=== PATIENT | female | born 1965 | race Caucasian/White ===

== ENCOUNTER 2019-07-06 16:46 | Outpatient (RCR) | payer OTHER, SELFPAY ==
--- NOTE | 2019-07-06 17:28 | PTOPEVAL ---
Thank you for referring this patient to [facility]. Please review, sign, date and return this plan of care VIET. I agree with and certify that the following plan of care is medically necessary. Referring Physician Date Admitting Provider: Attending Provider: Nik Mccord MD Referring Provider: *PT Outpatient Evaluation Start: 07/06/19 16:51 Freq: Status: Active Protocol: Document 07/06/19 16:52 TRAE (Rec: 07/06/19 17:28 TRAE [id number]) Therapy Assessment Status Assessment Status Assessment Status Evaluation Outpatient Past Medical History Neurological History Hx Neurological Disorders No Significant History Cardiovascular History Hx Hypercholesterolemia Yes: ON PRAVASTATIN Hx Hypertension Yes: ON VERAPAMIL AND SPIRONOLACTONE Respiratory History Hx Sleep Apnea Yes: PT STATES SHE HAS JORDAN-NO EVAL/NO CPAP Gastrointestinal History Hx Gastroesophageal Reflux Disease Yes: ON OMEPRAZOLE Genitourinary History Hx Urinary Tract Infection Yes: CHRONIC/RECURRENT UTI Musculoskeletal History Hx Other Musculoskeletal Disorders Yes: 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 SARA ULNAR NERVE TRANSPOSITION IN PAST Hematological History Hx Hematological Disorders No Significant History Endocrine History Hx Endocrine Disorders No Significant History HEENT History Hx Sinus Problems Yes: CHRONIC SINUSITIS R/T SEASONAL ALLERGIES- ON LORATIDINE/MONTELUKAST Integumentary History Hx Other Skin Disorders Yes: IDIOPATHIC RASH SEVERE AFTER HYST 2018-TREATED/ RESOLVED Reproductive History Hx Hysterectomy Yes: 2018 Psychosocial History Hx Psychiatric Disorders No Significant History Pain History History of Any Previous or Ongoing No Significant History Instance of Pain Anesthesia History Hx Post-Op Nausea/Vomiting Yes Evaluation Information Problem Diagnosis low back pain Onset 01/02/19 Subjective Information Pt. reports that she woke out Query Text:As Reported By Patient/ of bed about 6 months ago with Family back pain. She reports pain was intially a stabbing pain after getting up. She reports that beginning of this month she began to get more aggressive with exercise recently. She reports that increased walking causes pain
--- NOTE | 2019-08-23 07:16 | PCPTNOTE ---
Pt. has failed to return to the clinic. She attended a total of 2 treatment sessions. Pt. will be discharged from our care at this time. Refer to last daily noted for pt. discharge status.
== END 2019-07-10 09:43 | disposition home or self-care (01) ==
LOC: CHSPT 16:46
PROVIDERS: PCP Internal Medicine; Visit Provider Internal Medicine
DX: M54.5 Low back pain (principal)
CPT/HCPCS: 97014; 97110; 97161; G0283

== ENCOUNTER 2019-07-10 07:47 | Outpatient (CLI) | payer OTHER, SELFPAY ==
--- NOTE | ~2019-07-10 | MM_ITS ---
EXAMINATION: MM screening hermes BI w devonte HISTORY: Baseline screening mammogram TECHNIQUE: Craniocaudal and mediolateral oblique 3-D tomosynthesis images were obtained and synthetic 2-D images were generated. CAD analysis was submitted and interpreted. COMPARISON: None, baseline BREAST PARENCHYMAL COMPOSITION: The breasts are heterogeneously dense, which may obscure small masses . FINDINGS: RIGHT BREAST: There are questionable masses in the middle and posterior third of the inner breast. LEFT BREAST: There are questionable masses in the middle third of the outer breast in the anterior th ird of the inner breast. IMPRESSION: 1. Possible bilateral breast masses. 2. Additional mammographic views and possible breast ultrasound are recommended to evaluate for malig monica and establish a baseline given that this is the first mammographic examination. BI-RADS Category 0: Incomplete: Needs additional imaging evaluation. Reviewed, dictated and finalized at location A. SSIS DEVELOPER IMPRESSION: 1. Possible bilateral breast masses. 2. Additional mammographic views and possible breast ultrasound are recommended to evaluate for malignancy and establish a baseline given that this is the fir st mammographic examination. BI-RADS Category 0: Incomplete: Needs additional imaging evaluation.
== END 2019-07-10 07:48 | disposition home or self-care (01) ==
LOC: CHSIMG 07:50
PROVIDERS: PCP Internal Medicine; Visit Provider Internal Medicine
DX: Z12.31 Encounter for screening mammogram for malignant neoplasm of breast (principal)
CPT/HCPCS: 77063; 77067

== ENCOUNTER 2019-07-17 08:18 | Outpatient (CLI) | payer OTHER, SELFPAY ==
--- NOTE | ~2019-07-17 | MMUS_ITS ---
EXAMINATION: MM diagnostic hermes BI w devonte, US breast BI limited HISTORY: Possible bilateral breast masses reported on 07/10/2019 bilateral digital screening mammogram. TECHNIQUE: Additional 3-D tomosynthesis images of both breasts were performed and synthetic 2-D image s were generated. CAD analysis was submitted and interpreted. High resolution complete bilateral tia st ultrasound was performed. COMPARISON: 07/10/2019 bilateral digital screening mammogram FINDINGS: MAMMOGRAPHIC FINDINGS: Scattered bilateral subcentimeter nodular densities are noted. These are partially obscured by the boykin rrounding fibroglandular stroma. Bilateral complete breast ultrasound examination is recommended. ULTRASOUND: No suspicious mass or shadowing of either breast is evident. Right breast: 3:00 3 cm from nipple: 2.1 x 1.9 x 2.4 mm simple cyst 3:00 7 cm from nipple: 3.7 x 2.4 x 1.8 mm simple cyst 3:00 9 cm from nipple: 2.9 x 2.8 x 3.4 mm simple cyst Left breast: 3:00 1 cm from nipple: 3.3 x 1.7 x 4.6 mm simple cyst 3:00 3 cm from nipple: 1.7 x 2.1 x 2.3 mm sonolucency without internal vascularity or posterior shado wing, likely cyst 3:00 7 cm from nipple: Complicated multicystic lesion without internal vascularity or posterior shado wing, measuring approximately 5.9 x 4.3 x 3.9 mm 3:00 9 cm from nipple: 3.3 x 5.2 and 3.6 x 2.8 mm septated cyst 3:00 10 cm from nipple: 5.3 x 7.5 mm septated cyst 3:00 11 cm from nipple: 4.3 x 1.9 x 4.2 mm simple cyst IMPRESSION: 1. Bilateral benign cysts; no mammographic evidence of malignancy 2. Routine annual mammographic screening is recommended. BI-RADS Category 2: Benign finding(s). Reviewed, dictated and finalized at location A. ASTICS INSTRUCTOR IMPRESSION: 1. Bilateral benign cysts; no mammographic evidence of malignancy 2. Routine annual mammographic screening is recommended. BI-RADS Category 2: Benign finding(s).
== END 2019-07-17 08:19 | disposition home or self-care (01) ==
LOC: CHSIMG 08:20
PROVIDERS: PCP Internal Medicine; Visit Provider Internal Medicine
DX: R92.8 Other abnormal and inconclusive findings on diagnostic imaging of breast (principal)
CPT/HCPCS: 76642; 77062; 77066; G0279

== ENCOUNTER 2020-03-12 00:53 | Outpatient (CLI) | payer OTHER, SELFPAY ==
[2020-03-12 19:19] LABS: SARS-CoV-2 RNA PCR Negative
== END 2020-03-12 00:54 | disposition home or self-care (01) ==
LOC: ANHCOVIDDT 00:53
PROVIDERS: PCP Internal Medicine; Visit Provider Podiatrist Foot & Ankle Surgery
DX: Z01.812 Encounter for preprocedural laboratory examination (principal); Z20.828 Contact with and (suspected) exposure to other viral communicable diseases
CPT/HCPCS: 87635; C9803; U0003

== ENCOUNTER 2020-03-14 00:04 | Day surgery (SDC) | payer OTHER, SELFPAY ==
[2020-02-27 13:13] VITALS: BMI 36.6
[2020-03-14] VITALS (7 sets, daily range): BP systolic 109–147; BP diastolic 75–90; PULSE 72–101; RESP 12–18; TEMP 37.4; O2SAT 95–100
[2020-03-14] MEDS: LACTATED RINGERS 1,000 ML 30 ML IV CONT ×2 (10:40→12:58)
--- NOTE | 2020-03-14 11:21 | WPDANESEPPF ---
Anes - Initial Pre Proc Eval Procedure: Operation Date: 03/14/20 12:00 Proposed Procedures p Vidya Modification Of Yoav Bunion Right Foot - Yan Freitas DPM Date/Time: 03/14/20 11:21 Surgeon: Yan Freitas DPM Pre Op Diagnosis: Hallux Rigidus Right Foot Patient Data Age: 54 Gender: F Height: 5 ft 4 in Weight: 96.7 kg Allergies Allergy/AdvReac Type Severity Reaction Status Date / Time gabapentin Allergy Severe Swelling Verified 03/14/20 10:07 of Lip/Tongue/Throat Iodinated Contrast Media Allergy Severe Swelling Verified 03/14/20 10:07 of Lip/Tongue/Throat pregabalin Allergy Severe Rash Verified 03/14/20 10:07 strawberry Allergy Severe Swelling Verified 03/14/20 10:07 of Lip/Tongue/Throat Sulfa (Sulfonamide Allergy Severe Swelling Verified 03/14/20 10:07 Antibiotics) of Lip/Tongue/Throat Home Medications Medication Instructions Recorded Confirmed Type loratadine 10 mg PO DAILY 04/23/19 02/27/20 History magnesium oxide 400 mg PO BID 04/23/19 02/27/20 History melatonin 10 mg PO HS PRN 04/23/19 02/27/20 History montelukast 10 mg PO HS 04/23/19 02/27/20 History omeprazole 40 mg PO DAILY 04/23/19 02/27/20 History pravastatin 20 mg PO HS 04/23/19 02/27/20 History spironolactone 50 mg PO DAILY 04/23/19 02/27/20 History verapamil 180 mg PO Q12H 04/23/19 02/27/20 History vitamin E 400 unit PO DAILY 04/23/19 02/27/20 History ascorbic acid (vitamin C) [Vitamin 1 g PO DAILY 02/27/20 02/27/20 History C] Patient hx anesthesia problems: post op nausea/vomiting Family hx anesthesia problems: none PMFSH Past Medical History Medical History (Updated 04/27/19 @ 12:28 by Brooks Briggs MD) GERD (gastroesophageal reflux disease) Hyperlipidemia Hypertension Neuroma Obesity JORDAN (obstructive sleep apnea) Surgical History Surgical History History of hysterectomy Family History Family History Father Hypertension Family history of elevated blood lipids Family history of coronary artery disease Mother Hypertension Other Diabetes mellitus Family history of cardiovascular disease Family history of hypercholesterolemia Social History Social History Smoking packs per day: 0.5 Smoking cigarettes per day: 10.0 Years smoked: 26 Smoking pack-years: 13.00 Smoking status: Former smoker Tobacco type: cigarettes and e-cigarettes/vaping Second hand tobacco smoke exposure: No Smoking end date: 06/06/09 Alcohol intake: never Substance use: never Last use: 03-01-2010 Living arrangements: with family Gender identity (if verbalized by the patient): Female Spiritual care concerns: No Anes - Eval Final PreProcedure Day of Procedure 03/14/20 11:21 Patient weight: obese Heart: regular rate and rhythm Lungs: clear to auscultation Airway: Mallampati scale class II Neurological: alert and oriented Last oral intake: >/= 8 hours ASA classification: III Emergent: no Anesthetic plan: proceed Anesthesia type and monitoring: general LMA and standard monitoring Informed Consent: The patient's anesthetic plan and its attendant risks and benefits were discussed with the patient/family/POA. Questions were solicited and answers provided to the satisfaction of the patient/family/POA.
[2020-03-14] MEDS: SCOPOLAMINE 1.5 MG PATCH TRANSDERM (11:30)
--- NOTE | 2020-03-14 11:46 | PM.IMHP ---
H&P: HPI History of Present Illness Date/Time: 03/14/20 11:46 Chief complaint: Hallux Rigidus Right Foot Narrative: Rosana Ellsworth is a 54 year old female complaining of pain in the right great toe. [facility] Past Medical History Medical History (Updated 04/27/19 @ 12:28 by Brooks Briggs MD) GERD (gastroesophageal reflux disease) Hyperlipidemia Hypertension Neuroma Obesity JORDAN (obstructive sleep apnea) Surgical History Surgical History History of hysterectomy Family History Family History Father Hypertension Family history of elevated blood lipids Family history of coronary artery disease Mother Hypertension Other Diabetes mellitus Family history of cardiovascular disease Family history of hypercholesterolemia Social History Social History Smoking packs per day: 0.5 Smoking cigarettes per day: 10.0 Years smoked: 26 Smoking pack-years: 13.00 Smoking status: Former smoker Tobacco type: cigarettes and e-cigarettes/vaping Second hand tobacco smoke exposure: No Smoking end date: 06/06/09 Alcohol intake: never Substance use: never Last use: 03-01-2010 Living arrangements: with family Gender identity (if verbalized by the patient): Female Spiritual care concerns: No Meds Home Medications and Allergies Home Medications Medication Instructions Recorded Confirmed Type loratadine 10 mg PO DAILY 04/23/19 03/14/20 History magnesium oxide 400 mg PO BID 04/23/19 03/14/20 History melatonin 10 mg PO HS PRN 04/23/19 03/14/20 History montelukast 10 mg PO HS 04/23/19 03/14/20 History omeprazole 40 mg PO DAILY 04/23/19 03/14/20 History pravastatin 20 mg PO HS 04/23/19 03/14/20 History spironolactone 50 mg PO DAILY 04/23/19 03/14/20 History verapamil 180 mg PO Q12H 04/23/19 03/14/20 History vitamin E 400 unit PO DAILY 04/23/19 03/14/20 History ascorbic acid (vitamin C) [Vitamin 1 g PO DAILY 02/27/20 03/14/20 History C] Allergies Allergy/AdvReac Type Severity Reaction Status Date / Time gabapentin Allergy Severe Swelling Verified 03/14/20 10:07 of Lip/Tongue/Throat Iodinated Contrast Media Allergy Severe Swelling Verified 03/14/20 10:07 of Lip/Tongue/Throat pregabalin Allergy Severe Rash Verified 03/14/20 10:07 strawberry Allergy Severe Swelling Verified 03/14/20 10:07 of Lip/Tongue/Throat Sulfa (Sulfonamide Allergy Severe Swelling Verified 03/14/20 10:07 Antibiotics) of Lip/Tongue/Throat Vital Signs Vital Signs - 24 hr 03/14/20 10:00 Temperature 37.4 C Pulse Rate 101 H Respiratory Rate 18 Blood Pressure 138/82 Pulse Oximetry 95 Assessment and Plan Additional Plan decompression osteotomy of the right 1st MPJ
--- NOTE | 2020-03-14 11:55 | WPDHPUPDATE1 ---
History and Physical Update Update Date/Time: 03/14/20 11:55 History and Physical has been reviewed, including an updated exam of the patient. There are NO changes in the patient's condition. Risks, benefits, and alternatives have been discussed and questions answered. Patient agrees to proceed with procedure. Pt is also c/o increasing pain in the left foot. She is requesting a steroid injection while she is asleep. Consent was signed.
[2020-03-14] MEDS: ceFAZolin 2 GM/D5W 50 ML 2 GM/50 ML BAG IVPB (12:07)
--- NOTE | 2020-03-14 12:53 | PM.PROC ---
Procedure Note - Detailed Date of procedure: 03/14/20 Pre-op diagnosis: Hallux Rigidus Right Foot Neuroma 2nd interspace left Post-op diagnosis: same Procedure performed: Decompression osteotomy right 1st MPJ Injection 2nd interspace left Description of procedure: Under monitored sedation patient was brought into the operating room, placed on the operating table. Following general anesthesia and injection of equal parts 0.5% marcaine plain, dexamethasone and depo medrol was injected into the left 2nd interspace. local anesthesia was obtained around the 1 st metatarsal base using 2% Lidocaine plain and 0.5% Marcaine plain. The foot was then scrubbed, prepped, and draped in the usual aseptic manner. Esmark bandage was used to exsanguinate the patient?s right foot and the ankle tourniquet inflated to 250mm. Attention was then directed to the dorsal aspect of the 1 st metatarsal cunieform jont of the right foot where a linear incision was made medial to the extensor tendon. It was deepened down to the level of the bone using sharp and blunt dissection with great care taken to identify and retract all vital, neural and vascular structures. A linear capsulotomy was made and the head of the exostosis was freed of its soft tissue attachments. Thel eminence was resected using bone saw. A osteotomy was made from dorsal distal to proximal plantar. It was fixated with a 3.o cannulated screw. It was tested and noted to be stable Rough edges were removed with the bone bur. Wound was then flushed with copious amounts of sterile normal saline. Capsule and deep tissue were repaired using 3-0 vicryl, the skin was repaired using 4-0 nylon. The wounds were then covered with a dry, sterile compressive dressing consisting of Steristrips, antibiotic ointment, Adaptic, 4 x 4?s, Emmanuel and Coban. The ankle tourniquet was deflated and prompt capillary refill response noted to all digits of the right foot. Patient tolerated procedure and anesthesia well. He was transferred to the recovery room with vital signs stable and neurovascular status intact to all digits of the right foot. Following a period of post-operative monitoring the patient will be discharged home with written and oral post-operative instructions. Anesthesia: GLMA Surgeon: Yan Freitas DPM Airplane Gas Tank Liner Assembler: None Estimated blood loss (mL): 5 Drains: No Packing: No Pathology: none sent Complications: No immediate complications Condition: stable Disposition: PACU
[2020-03-14] MEDS: oxyCODONE HCL (*CRX) 5 MG TAB IR PO (14:05)
== END 2020-03-14 14:33 | disposition home or self-care (01) ==
PROVIDERS: PCP Internal Medicine; Visit Provider Podiatrist Foot & Ankle Surgery
PROC: (CPT 28299; principal; 2020-03-14 12:00)
DX: M20.21 Hallux rigidus, right foot (principal); G57.62 Lesion of plantar nerve, left lower limb; I10 Essential (primary) hypertension; E78.5 Hyperlipidemia, unspecified; K21.9 Gastro-esophageal reflux disease without esophagitis; G47.33 Obstructive sleep apnea (adult) (pediatric); F17.290 Nicotine dependence, other tobacco product, uncomplicated; E66.9 Obesity, unspecified; Z68.36 Body mass index [BMI] 36.0-36.9, adult
CPT/HCPCS: 64455; 28306; A9270; J0690; J1030; J1100; J2250; J2405; J2704; J3010; J7120

== ENCOUNTER 2021-06-30 01:21 | Day surgery (SDC) | payer OTHER, SELFPAY ==
[2021-06-17 15:15] VITALS: BMI 32.4
[2021-06-30 08:51] VITALS: BP 147/90; PULSE 80; RESP 20; TEMP 36.6; O2SAT 100
[2021-06-30] MEDS: LACTATED RINGERS 1,000 ML 150 ML IV CONT (08:53)
--- NOTE | 2021-06-30 09:33 | WPDANESEPPF ---
Anes - Initial Pre Proc Eval Procedure: Operation Date: 06/30/21 10:15 Proposed Procedures p Colonoscopy - Jaden Magallanes MD Date/Time: 06/30/21 09:33 Surgeon: Jaden Magallanes MD Pre Op Diagnosis: positive cologuard Patient Data Age: 55 Gender: F Height: 1.65 m Weight: 91.3 kg Last Vital Signs Temp 97.8 F 06/30/21 08:51 Pulse 80 06/30/21 08:51 Resp 20 06/30/21 08:51 BP 147/90 H 06/30/21 08:51 Pulse Ox 100 06/30/21 08:51 Allergies Allergy/AdvReac Type Severity Reaction Status Date / Time gabapentin Allergy Severe Swelling Verified 06/30/21 08:49 of Lip/Tongue/Throat Iodinated Contrast Media Allergy Severe Swelling Verified 06/30/21 08:49 of Lip/Tongue/Throat pregabalin Allergy Severe Rash Verified 06/30/21 08:49 strawberry Allergy Severe Swelling Verified 06/30/21 08:49 of Lip/Tongue/Throat Sulfa (Sulfonamide Allergy Severe Swelling Verified 06/30/21 08:49 Antibiotics) of Lip/Tongue/Throat Home Medications Medication Instructions Recorded Confirmed Type magnesium oxide 400 mg PO BID 04/23/19 06/17/21 History melatonin 10 mg PO HS PRN 04/23/19 06/17/21 History omeprazole 40 mg PO DAILY 04/23/19 06/17/21 History pravastatin 20 mg PO HS 04/23/19 06/17/21 History spironolactone 50 mg PO DAILY 04/23/19 06/17/21 History verapamil 180 mg PO DAILY 04/23/19 06/17/21 History vitamin E 400 unit PO DAILY 04/23/19 06/17/21 History ascorbic acid (vitamin C) [Vitamin 1 g PO DAILY 02/27/20 06/30/21 History C] Patient hx anesthesia problems: none Family hx anesthesia problems: none Results Review: All pre-operative results and documents have been reviewed as part of the pre-operative evaluation. [facility] Past Medical History Medical History (Updated 09/10/20 @ 09:22 by Mary Ann De Oliveira CMA) GERD (gastroesophageal reflux disease) History of kidney stones Hyperlipidemia Hypertension Neuroma Obesity JORDAN (obstructive sleep apnea) Surgical History Surgical History History of cholecystectomy History of foot surgery History of hysterectomy History of surgery on arm Family History Family History Father Hypertension Family history of elevated blood lipids Family history of coronary artery disease Mother Hypertension Other Diabetes mellitus Family history of cardiovascular disease Family history of hypercholesterolemia Social History Social History Smoking packs per day: 0.5 Smoking cigarettes per day: 10.0 Years smoked: 26 Smoking pack-years: 13.00 Smoking status: Current every day smoker Tobacco type: e-cigarettes/vaping Second hand tobacco smoke exposure: No Smoking end date: 06/06/09 Alcohol intake: never Drinks per week: 1 Substance use: never Substance use type: does not use Last use: 03-01-2010 Living arrangements: with family Gender identity (if verbalized by the patient): Female Spiritual care concerns: No Anes - Eval Final PreProcedure Day of Procedure 06/30/21 09:33 Patient weight: obese Heart: regular rate and rhythm Lungs: clear to auscultation Airway: Mallampati scale class III Neurological: alert and oriented Last oral intake: >/= 8 hours ASA classification: III Emergent: no Anesthetic plan: proceed Anesthesia type and monitoring: general GIVS and standard monitoring Results Review: All pre-operative results and documents have been reviewed as part of the pre-operative evaluation. Informed Consent: The patient's anesthetic plan and its attendant risks and benefits were discussed with the patient/family/POA. Questions were solicited and answers provided to the satisfaction of the patient/family/POA.
--- NOTE | 2021-06-30 09:43 | PM.HPGS ---
History of Present Illness History of Present Illness Consent: Risks, benefits, and alternatives have been discussed and questions answered. Patient agrees to proceed with procedure. Chief complaint: positive cologuard Narrative: Rosana Ellsworth is a 55 year old female here because + cologuard, never had colonoscopy. Grandfather had colon cancer. Review of Systems Constitutional: Constitutional: Denies headache(s) and Denies weakness Eyes: Eyes: Denies blurry vision ENT: Reports Normal hearing present, Denies headache(s) and Denies neck pain Cardiovascular: Cardiovascular: Denies chest pain and Denies dyspnea Respiratory: Respiratory: Denies dyspnea Gastrointestinal: Gastrointestinal: Reports no additional gastrointestinal complaints Genitourinary: Genitourinary: Denies dysuria Musculoskeletal: Musculoskeletal: Denies neck pain Integumentary/Breasts: Skin/Breast: Denies dry skin Neurologic: Reports Normal hearing present, Denies headache(s) and Denies weakness Psychiatric: Psychiatric: Denies anxiety Endocrine: Endocrine: Denies change in body appearance Hematologic/Lymphatic: Hematologic/Lymphatic: Denies easy bleeding Allergic/Immunologic: Allergic/Immunologic: Denies urticaria PMFSH Past Medical History Medical History (Updated 06/30/21 @ 09:44 by Jaden Magallanes MD) GERD (gastroesophageal reflux disease) History of kidney stones Hyperlipidemia Hypertension Neuroma Obesity JORDAN (obstructive sleep apnea) Positive colorectal cancer screening using Cologuard test Surgical History Surgical History History of cholecystectomy History of foot surgery History of hysterectomy History of surgery on arm Family History Family History Father Hypertension Family history of elevated blood lipids Family history of coronary artery disease Mother Hypertension Other Diabetes mellitus Family history of cardiovascular disease Family history of hypercholesterolemia Social History Social History Smoking packs per day: 0.5 Smoking cigarettes per day: 10.0 Years smoked: 26 Smoking pack-years: 13.00 Smoking status: Current every day smoker Tobacco type: e-cigarettes/vaping Second hand tobacco smoke exposure: No Smoking end date: 06/06/09 Alcohol intake: never Drinks per week: 1 Substance use: never Substance use type: does not use Last use: 03-01-2010 Living arrangements: with family Gender identity (if verbalized by the patient): Female Spiritual care concerns: No Meds Home Medications and Allergies Home Medications Medication Instructions Recorded Confirmed Type magnesium oxide 400 mg PO BID 04/23/19 06/17/21 History melatonin 10 mg PO HS PRN 04/23/19 06/17/21 History omeprazole 40 mg PO DAILY 04/23/19 06/17/21 History pravastatin 20 mg PO HS 04/23/19 06/17/21 History spironolactone 50 mg PO DAILY 04/23/19 06/17/21 History verapamil 180 mg PO DAILY 04/23/19 06/17/21 History vitamin E 400 unit PO DAILY 04/23/19 06/17/21 History ascorbic acid (vitamin C) [Vitamin 1 g PO DAILY 02/27/20 06/30/21 History C] Allergies Allergy/AdvReac Type Severity Reaction Status Date / Time gabapentin Allergy Severe Swelling Verified 06/30/21 08:49 of Lip/Tongue/Throat Iodinated Contrast Media Allergy Severe Swelling Verified 06/30/21 08:49 of Lip/Tongue/Throat pregabalin Allergy Severe Rash Verified 06/30/21 08:49 strawberry Allergy Severe Swelling Verified 06/30/21 08:49 of Lip/Tongue/Throat Sulfa (Sulfonamide Allergy Severe Swelling Verified 06/30/21 08:49 Antibiotics) of Lip/Tongue/Throat Vital Signs Vital Signs - 24 hr 06/30/21 08:51 Temperature 97.8 F Pulse Rate 80 Respiratory Rate 20 Blood Pressure 147/90 H Pulse Oximet
[2021-06-30 10:13] VITALS: BP 122/92; PULSE 65; RESP 23; O2SAT 100
[2021-06-30 10:23] VITALS: BP 134/74; PULSE 61; RESP 16; O2SAT 100
[2021-06-30 10:33] VITALS: BP 128/93; PULSE 73; RESP 18; O2SAT 100
== END 2021-06-30 10:35 | disposition home or self-care (01) ==
PROVIDERS: PCP Internal Medicine; Visit Provider Internal Medicine Gastroenterology
PROC: 0DJD8ZZ Inspection of Lower Intestinal Tract, Via Natural or Artificial Opening Endoscopic (ICD-10-PCS; CPT 45378; principal; 2021-06-30 10:15)
DX: R19.5 Other fecal abnormalities (principal); D12.2 Benign neoplasm of ascending colon; D12.3 Benign neoplasm of transverse colon; D12.5 Benign neoplasm of sigmoid colon; K63.5 Polyp of colon; K57.30 Diverticulosis of large intestine without perforation or abscess without bleeding; K64.8 Other hemorrhoids; I10 Essential (primary) hypertension; E78.5 Hyperlipidemia, unspecified; K21.9 Gastro-esophageal reflux disease without esophagitis; G47.33 Obstructive sleep apnea (adult) (pediatric); E66.9 Obesity, unspecified; Z68.33 Body mass index [BMI] 33.0-33.9, adult; F17.290 Nicotine dependence, other tobacco product, uncomplicated
CPT/HCPCS: 45385; 88305; J2704; J7120

== ENCOUNTER 2021-12-05 06:47 | Outpatient (CLI) | payer OTHER, SELFPAY ==
[2021-12-05 07:15] LABS: Add Urine Microscopic? NO; Appearance Urine Clear (Clear); Basophils Absolute Auto 0.03 K/mm3 (0.00-0.10); Basophils Percent Auto 0.4 % (0.0-1.0); Bilirubin Urine Negative (Negative); Blood Urine Negative (Negative); Color Urine Yellow (Yellow); Eosinophils Absolute Auto 0.13 K/mm3 (0.02-0.50); Eosinophils Percent Auto 1.9 % (1.0-6.0); Glucose Urine UA Negative (Negative); Hematocrit 46.2 % (35.0-49.0); Hemoglobin 15.6 g/dL (12.0-15.0); Immature Granulocyte Absolute 0.03 K/mm3 (0.00-0.00); Immature Granulocyte Percent A 0.4 % (0.0-0.0); Ketones Urine Negative (Negative); Leukocyte Esterase Ur Negative (Negative); Lymphocytes Absolute Auto 1.98 K/mm3 (1.10-4.50); Lymphocytes Percent Auto 29.4 % (18.0-42.0); Mean Corpuscular HGB Conc 33.8 g/dL (32.0-36.0); Mean Corpuscular Hemoglobin 27.8 pg (27.0-31.0); Mean Corpuscular Volume 82.4 fL (78.0-102.0); Mean Platelet Volume 10.3 fl (9.2-11.8); Monocytes Absolute Auto 0.54 K/mm3 (0.10-0.90); Neutrophils Percent Auto 59.9 % (50.0-70.0); Nitrate Urine Negative (Negative); Platelet Count Result 298 K/mm3 (150-420); Protein Urine Negative (Negative); Red Blood Count 5.61 M/mm3 (4.20-5.40); Red Cell Distribution Width 12.7 % (11.6-14.4); Specific Grav Ur >= 1.030 (1.010-1.020); Urobilinogen Urine 0.2 mg/dL (0.2-1.0); White Blood Count 6.7 K/mm3 (4.8-10.8)
[2021-12-05 07:36] LABS: Alanine Aminotransferase 49 U/L (14-59); Albumin Level 3.8 g/dL (3.4-5.0); Alkaline Phosphatase 63 U/L (46-116); Anion Gap 7 mmol/L (8-16); Aspartate Amino Transferase 46 U/L (15-37); Bilirubin,Total 0.6 mg/dL (0.00-1.00); Blood Urea Nitrogen 12 mg/dL (7-18); Calcium 9.1 mg/dL (8.5-10.1); Carbon Dioxide 29 mmol/L (21-32); Chloride 102 mmol/L (98-108); Cholesterol 178 mg/dL (0-200); Estimated Glomerular Filt Rate > 60; Glucose 107 mg/dL (70-99); HDL Direct 43 mg/dL (40-60); LDL Cholesterol Calculated 90 mg/dL (<130); Osmolality Calculated 285 mOsm/kg (285-295); Potassium 4.5 mmol/L (3.5-5.1); Sodium 138 mmol/L (136-145); Thyroid Stimulating Hormone 1.62 uIU/mL (0.36-3.74); Total Protein 7.4 g/dL (6.4-8.2); Triglycerides 224 mg/dL (0-150)
== END 2021-12-05 06:48 | disposition home or self-care (01) ==
LOC: CHSLAB 06:50
PROVIDERS: PCP Internal Medicine; Visit Provider Internal Medicine
DX: E78.5 Hyperlipidemia, unspecified (principal); I10 Essential (primary) hypertension; E66.3 Overweight; N30.01 Acute cystitis with hematuria
CPT/HCPCS: 36415; 80053; 80061; 81003; 84443; 85025

== ENCOUNTER 2022-11-23 06:59 | Outpatient (CLI) | payer OTHER, SELFPAY ==
[2022-11-23 07:21] LABS: Basophils Absolute Auto 0.04 K/mm3 (0.00-0.10); Basophils Percent Auto 0.9 % (0.0-1.0); Eosinophils Absolute Auto 0.09 K/mm3 (0.02-0.50); Hematocrit 43.8 % (35.0-49.0); Hemoglobin 14.6 g/dL (12.0-15.0); Immature Granulocyte Absolute 0.02 K/mm3 (0.00-0.00); Immature Granulocyte Percent A 0.5 % (0.0-0.0); Lymphocytes Absolute Auto 2.09 K/mm3 (1.10-4.50); Lymphocytes Percent Auto 47.2 % (18.0-42.0); Mean Corpuscular HGB Conc 33.3 g/dL (32.0-36.0); Mean Corpuscular Hemoglobin 27.3 pg (27.0-31.0); Mean Corpuscular Volume 81.9 fL (78.0-102.0); Mean Platelet Volume 10.1 fl (9.2-11.8); Monocytes Absolute Auto 0.49 K/mm3 (0.10-0.90); Monocytes Percent Auto 11.1 % (2.0-11.0); Neutrophils Absolute Auto 1.7 K/mm3 (1.7-7.2); Neutrophils Percent Auto 38.3 % (50.0-70.0); Platelet Count Result 262 K/mm3 (150-420); Red Blood Count 5.35 M/mm3 (4.20-5.40); White Blood Count 4.4 K/mm3 (4.8-10.8)
[2022-11-23 07:23] LABS: Appearance Urine Clear (Clear); Bilirubin Urine Negative (Negative); Blood Urine Negative (Negative); Color Urine Light Yellow (Yellow); Glucose Urine UA Negative (Negative); Ketones Urine Negative (Negative); Leukocyte Esterase Ur 2+ (Negative); Nitrate Urine Negative (Negative); Protein Urine Negative (Negative); Specific Grav Ur 1.015 (1.010-1.020); Urobilinogen Urine 0.2 mg/dL (0.2-1.0); pH Urine 6.5 (5.0-8.0)
[2022-11-23 07:30] LABS: Add Urine Microscopic? YES; RBC Urine None seen /hpf (0-2)
[2022-11-23 07:31] LABS: Bacteria Urine 1+ /hpf; Squamous Epithelial Cell Urine Moderate /hpf (Few)
[2022-11-23 08:08] LABS: Alanine Aminotransferase 42 U/L (14-59); Albumin Level 3.9 g/dL (3.4-5.0); Alkaline Phosphatase 58 U/L (46-116); Anion Gap 6 mmol/L (8-16); Aspartate Amino Transferase 22 U/L (15-37); Bilirubin,Total 0.5 mg/dL (0.00-1.00); Blood Urea Nitrogen 14 mg/dL (7-18); Calcium 9.2 mg/dL (8.5-10.1); Carbon Dioxide 31 mmol/L (21-32); Chloride 102 mmol/L (98-108); Cholesterol 182 mg/dL (0-200); Estimated Glomerular Filt Rate > 60; Glucose 102 mg/dL (70-99); HDL Direct 37 mg/dL (40-60); LDL Cholesterol Calculated 89 mg/dL (<130); Osmolality Calculated 288 mOsm/kg (285-295); Potassium 4.4 mmol/L (3.5-5.1); Sodium 139 mmol/L (136-145); Thyroid Stimulating Hormone 1.32 uIU/mL (0.36-3.74); Total Protein 7.3 g/dL (6.4-8.2); Triglycerides 280 mg/dL (0-150)
== END 2022-11-23 07:00 | disposition home or self-care (01) ==
LOC: CHSLAB 07:03
PROVIDERS: PCP Internal Medicine; Visit Provider Internal Medicine
DX: Z00.00 Encounter for general adult medical examination without abnormal findings (principal); I10 Essential (primary) hypertension; R73.03 Prediabetes
CPT/HCPCS: 36415; 80053; 80061; 81001; 83036; 84443; 85025